=== PATIENT | female | born 1955 | race Caucasian/White ===

== ENCOUNTER 2024-10-02 09:14 | Outpatient (AMB) | payer MEDICARE, SELFPAY ==
--- NOTE | 2024-10-02 09:18 | A.OFFVIS_ITS ---
Vital Signs 10/02/24 09:20 Height 5 ft 1 in Weight 114 lb 6.719 oz BMI 21.6 BP 110/78 Blood Pressure Location Rt brachial Position Sitting Pulse 76 Pulse Source Pulse Oximeter Pulse Oximetry (%) 97 Oxygen Delivery Method Room Air Intake Visit Reasons: arthritis Accompanied by: Self / Same As Patient Allergies naproxen Adverse Reaction (Mild, Verified 10/02/24 09:22) Unknown HPI HPI arthritis: Details: She feels well. Cyst tests resolved on her right proximal 5th phalanx. She has been taking alendronate since 01/14/2024. She takes vitamin-D 125 mcg daily but has missed a couple of doses. Denies any plans for tooth extraction. 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 She has been experiencing neck discomfort, which she treats with a heating pad. She has been to physical therapy in the past without any benefit. [facility] Medical History Arthritis Surgical History History of 2 sections Review of Systems Const All systems reviewed & are unremarkable except as noted in HPI and below Physical Exam Vital Signs: Last Vital Signs Pulse 76 10/02/24 09:20 BP 110/78 10/02/24 09:20 Pulse Ox 97 10/02/24 09:20 Oxygen Delivery Method Room Air 10/02/24 09:20 BMI result Body Mass Index 21.6 Const Other: General: Comfortable CVS: RRR Respiratory: clear to auscultation bilaterally. Good respiratory effort Skin: No lesions seen MSK: Tender to palpate cervical spinous process and paraspinal muscles. She is able to rotate cervical spine 60 degrees bilateral but has limited neck flexion. She has good neck extension. Heberden's nodes present. Right 5th finger cyst present on PIP. No tenderness of any joint in extremities. Assessment & Plan Assessment & Plan (1) Osteoporosis: Comment: On Fosamax since 01/14/2024. She had bone density at PCPs office in [place] the year before. We discussed that it is best for her to be on treatment for at least 2 years before checking bone density to assess benefit Code(s): M81.0 - Age-related osteoporosis without current pathological fracture Category: Medical Qualifiers: Osteoporosis type: age-related Presence of current pathological fracture: unspecified Qualified Code(s): M81.0 - Age-related osteoporosis without current pathological fracture Plan: Bone density due after 01/13/2026 Continue Fosamax 70 mg once weekly Continue calcium carbonate 600 mg daily Continue vitamin-D 125 mcg daily Discussed importance of having a regular exercise regimen. Discussed importance of weight-bearing exercises Return to clinic in 6 months (2) Neck pain: Comment: Myofascial strain is contributing. She also has spinal tenderness that I am concerned for osteoarthritis contributing. 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 She is a a[employer] dental hygienist and after prison her pain did subside. She has had recurrence of pain currently treating with heating pad. We discussed conservative management. Patient declined physical therapy. Code(s): M54.2 - Cervicalgia Category: Medical Plan: I recommend that she resume exercises that she learned from PT in the past to maintain range of motion Try lidocaine topical/patch applied to affected area as needed Continue up to apply heat to the affected area as needed If pain does not improve next visit, we will obtain C-spine x-ray for further evaluation Return to clinic 6 months or sooner if needed (3) Osteoarthritis of hands, bilateral: Comment: Pain is controlled Code(s): M19.041 - Primary osteoarthritis, right hand; M19.042 - Primary osteoarthritis, left hand Category: Medical Plan: Monitor clinically Orders: Orders Calcium Today M81.0 - Age-related osteoporosis without current pathological fracture Alkaline Phosphatase Bone Today M81.0 - Age-related osteoporosis without current pathological fracture Creatinine Today M81.0 - Age-related osteoporosis without current pathological fracture Vitamin D 25-OH Total Today M81.0 - Age-related osteoporosis without current pathological fracture Albumin Level Today M81.0 - Age-related osteoporosis without current pathological fracture Collagen Type I C-Telopeptide Today M81.0 - Age-related osteoporosis without current pathological fracture Coding Level of Care Code Est Pt Level 4 (51742) Complex EM visit Add On G2211 Diagnoses Age related osteoporosis, unspecified pathological fracture presence M81.0 Osteoporosis type: age-related Presence of current pathological fracture: unspecified Neck pain M54.2 Osteoarthritis of hands, bilateral M19.041; M19.042
[2024-10-02 09:20] VITALS: BP 110/78; PULSE 76; O2SAT 97; BMI 21.6
--- OUTSIDE RECORDS SUMMARY | 2024-10-02 09:30 | XMS_ITS | Data Portability ---
Author Organization [facility] [facility], [facility] Address [address] [place] [address] Care Team Providers Care Electrician Aircraft Name Role Phone MARIA DE JESUS BARBA Referring Provider Assessment No assessment recorded. Plan of Treatment Reminders Order Date Submit Date Provider Last Modified By Organization Details Last Modified Time Details Appointments None recorded. Lab None recorded. Referral None recorded. Procedures None recorded. Surgeries None recorded. Imaging None recorded. Medication Orders erythromyci n 5 mg/gram (0.5 %) eye ointment 2022 023 [facility][id number], [address] [place], [place], [id number], 3 11:22:58 Patient TargetsNo targets recorded. Patient Instructions Encounter Date Encounter Id Patient Instructions Last Modified By Organization Details Last Modified Time 09/10/2023 [id number] Follow up with your eye DrFernie if needed. [email or web address] Not available 09/10/2023 11:23:13 Reason for Referral None Reported. Problems No Known Problems Procedures Surgical History Date Name Laterality Status Provider Name and Address Organization Details Recorded Time 3 Date of Last Mammogram completed Shannon Manning [facility] 09/10/2023 10:46:24 Imaging Results None recorded. Procedure Notes None recorded. Medical Equipment None Reported. Allergies No known drug allergies Medications Name Sig Start Date Stop Date Status Note LastModified by Organization Details LastModified Time erythromycin 5 mg/gram (0.5 %) eye ointment APPLY 1 CM RIBBON INTO THE LOWER CONJUNCTIVA L SAC(S) IN THE AFFECTED EYE(S) BY OPHTHALMIC ROUTE 3 TIMES PER DAY 2022 active Not Available Not Available Not Avai lable Vitals Date Recorded Body weight Body mass index (BMI) Body height Oxygen saturation Oxygen saturation in Arterial blood by Pulse oximetry Heart rate Body temperature Systolic blood pressure Diastolic blood pressure Provider Name and Address Organization Details Last Updated DateTime 3 56387.6 2 g 22.3 kg/m2 154.94 cm 98 % 98 % 60 /min 97.9 [degF] 135 mm[Hg] 80 mm[Hg] [facility] 10:52:16 Social History Question Answer Notes LastModified by Organizat ion Details LastModified Time Tobacco Smoking Status Never Smoker [facility] 09/10/2023 10:50:40 What Is Your Level Of Alcohol Consumption? Occasional [email or web address] Information not available 09/10/2023 What Is Your Level Of Caffeine Consumption? Occasional [email or web address] Information not available 09/10/2023 Have You Ever Been Counseled For Unhealthy Alcohol Use? No [email or web address] Information not available 09/10/2023 What Is Your Relationship Status? [email or web address] Information not available 09/10/2023 Do You Use Any Illicit Or Recreational Drugs? No [email or web address] Information not available 09/10/2023 Has Tobacco Cessation Counseling Been Provided? No [email or web address] Information not available 09/10/2023 Do You Or Have You Ever Used Any Other Forms Of Tobacco Or Nicotine? No [email or web address] Information not available 09/10/2023 Sex: Female Functional Status None recorded. Mental Status None recorded. Family History Nothing Reported. Medical History No medical history recorded. Gynecological History Statement/Question Response Date of Last Mammogram 06/26/2023 Obstetrics History GPAL:G 0 P 0 0 0 0 Immunizations Vaccine Type Date Status Note Provider Nam e and Address Organization Details Recorded Time Influenza, adjuvanted, quadrivalent, PF 07/09/2021 completed [facility] 09/10/2023 09:54:33 COVID-19, mRNA, LNP-S, PF, 100 mcg/0.5mL dose or 50 mcg/0.25mL dose 07/20/2021 [facility] 09/10/2023 09:54:33 Past Encounters Encounter ID Performer Location Encounter Start Date Encounter Closed Date Diagnosis/Indication Diagnosis SNOMED-CT Code Diagnosis ICD10 Code Diagnosis Note [id number] DO [facility] [address] [place] [id number] 09/10/2023 09:41:30 09/10/2023 11:20:41 Acute blepharitis 73971100 H01.009 Acute. Unstable. Needs treatment. See orders. Health Concerns Section Related Observation LastModified by Organization Detai ls LastModified Time None Recorded Concern Status LastModified by Organization Details LastModified Time None Recorded Advance Directives Directive None Recorded Payers Encounter Date Sequence Insurance Name Policy Number Policy Valdivia Covered Member ID Valdivia Member ID Guarantor Name 09/10/2023 1 [place] Santa Perez [id number] Santa Perez 09/10/2023 2 [facility] (MEDICARE SUPPLEMENT) [id number] Santa Perez [id number] Santa Perez Notes Date Note Type Note Provider Name and Address Organization Details Recorded Time 09/10/2023 text/html Eye ComplaintRep orted bypatient.Reason for visit:acute complaint Location:right eye Quality:puffy eyelids(upper) Severity:moderate Duration:constant Onset/Timin weeks ago;recurrent episode Context:no other sick contacts; no recent swimming; no recent injury; History of Blepharitis Alleviating factors:nothing Aggravating factors:palpation Associated Symptoms:no fever; no exudates; no head congestion Express Covid Questions ?Are you feeling sick today? Includes any NEW symptom(s) among those listed previously that are NOT due to another health problem ?No ?Have you tested positive for COVID-19 in the past 10 days?No ?In the last 10 days, have you been exposed to someone who has tested positive for COVID-19?No Imported from [facility] on 09/10/2023 Maria De Jesus Barba, DO [address], [place], [address], [facility], [facility] 09/10/2023 11:23:29 OBGyn Episode No OBEpisode recorded.
== END 2024-10-02 10:14 | disposition home or self-care (01) ==
PROVIDERS: Visit Provider Internal Medicine Rheumatology
DX: M81.0 Age-related osteoporosis without current pathological fracture (principal); M54.2 Cervicalgia; M19.041 Primary osteoarthritis, right hand; M19.042 Primary osteoarthritis, left hand
CPT/HCPCS: 99214; G2211

== ENCOUNTER 2024-10-02 09:14 | Outpatient (REF) | payer MEDICARE, SELFPAY ==
[2024-10-02 18:33] LABS: Albumin Level 4.2 g/dL (3.5-5.0); Calcium 9.7 mg/dL (8.4-10.2); Estimated Glomerular Filt Rate > 60
[2024-10-02 18:48] LABS: Vitamin D 25-OH Total 49.7 ng/mL (>30)
[2024-10-06 04:09] LABS: Alkaline Phosphatase Bone 7.5 mcg/L (5.6-29.0)
[2024-10-06 21:28] LABS: Collagen Type I C-Telopeptide 116 pg/mL (see note)
== END 2024-10-02 09:15 | disposition home or self-care (01) ==
LOC: HO.HKASLDS 09:14
PROVIDERS: Visit Provider Internal Medicine Rheumatology
DX: M81.0 Age-related osteoporosis without current pathological fracture (principal); M54.2 Cervicalgia; M19.041 Primary osteoarthritis, right hand; M19.042 Primary osteoarthritis, left hand
CPT/HCPCS: 36415; 82040; 82306; 82310; 82523; 82565; 84075; 99212

== ENCOUNTER 2025-04-03 09:16 | Outpatient (AMB) | payer MEDICARE, SELFPAY ==
--- NOTE | 2025-04-03 09:20 | A.OFFVIS_ITS ---
Vital Signs 04/03/25 09:21 Height 5 ft 1 in Weight 119 lb 0.794 oz BMI 22.5 BP 124/80 Blood Pressure Location Rt brachial Position Sitting Pulse 76 Pulse Source Pulse Oximeter Pulse Oximetry (%) 98 Oxygen Delivery Method Room Air Intake Visit Reasons: 6 mnts Intake Note: Patient presents today for an arthritis follow up. Allergies naproxen Adverse Reaction (Mild, Verified 04/03/25 09:24) Unknown HPI HPI 6 mnts: Details: She has MRI being scheduled of c-spine for workup for R foot/lower anterior ankle by Dr. [facility]. EMG of LE was unremarkable and L spine radiculopathy was not found. She has sporatic exercises learned from PT in the past when neck is sore. Neck pain may be positional due to the way she sleeps. Weight lifts twice a week 60lbs. Uses heat on neck PRN with benefit. [facility] Medical History Arthritis Surgical History History of 2 sections Physical Exam Vital Signs: Last Vital Signs Pulse 76 04/03/25 09:21 BP 124/80 04/03/25 09:21 Pulse Ox 98 04/03/25 09:21 Oxygen Delivery Method Room Air 04/03/25 09:21 BMI result Body Mass Index 22.5 Const Other: General: Comfortable CVS: RRR Respiratory: clear to auscultation bilaterally. Good respiratory effort Skin: No lesions seen MSK: She is able to rotate cervical spine 60 degrees right side and 45 degrees left side but has limited neck flexion and extend. Heberden's nodes present. No tenderness of any joint in extremities. Normal range of upper extremities. Assessment & Plan Assessment & Plan (1) Osteoporosis: Comment: On Fosamax since 01/14/2024. She had bone density at PCPs office in [place] the year before. We discussed that it is best for her to be on treatment for at least 2 years before checking bone density to assess benefit Code(s): M81.0 - Age-related osteoporosis without current pathological fracture Category: Medical Qualifiers: Osteoporosis type: age-related Presence of current pathological fracture: unspecified Qualified Code(s): M81.0 - Age-related osteoporosis without current pathological fracture Plan: Bone density due after 01/13/2026 Continue Fosamax 70 mg once weekly Continue calcium carbonate 600 mg PRN. She has dietary calcium intake daily Continue vitamin-D 125 mcg daily Discussed importance of having a regular exercise regimen Follow up with PCP Return to clinic PRN (2) Neck pain: Comment: With limited range of motion. 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 Neurologists is repeating MRI cervical spine for workup of right foot/ lower leg paraesthesia. She has completed PT in the past. Code(s): M54.2 - Cervicalgia Category: Medical Plan: I recommend that she resume exercises that she learned from PT in the past and do daily exercises to improve range of motion of cervical spine She will follow up with neurologists for MRI C-spine Return to clinic PRN (3) Osteoarthritis of hands, bilateral: Comment: Pain is controlled Code(s): M19.041 - Primary osteoarthritis, right hand; M19.042 - Primary osteoarthritis, left hand Category: Medical Plan: Monitor clinically Return to clinic PRN Coding Level of Care Code Est Pt Level 4 (02344) Complex EM visit Add On G2211 Diagnoses Age related osteoporosis, unspecified pathological fracture presence M81.0 Osteoporosis type: age-related Presence of current pathological fracture: unspecified Neck pain M54.2 Osteoarthritis of hands, bilateral M19.041; M19.042 Time Spent (min) 30
[2025-04-03 09:21] VITALS: BP 124/80; PULSE 76; O2SAT 98; BMI 22.5
--- OUTSIDE RECORDS SUMMARY | 2025-04-03 09:34 | XMS_ITS | Data Portability ---
Author Organization [facility] [employer], [facility] Address [address] [place] [address] Care Team Providers Care Lining Ironer Name Role Phone DERIKMARIA DE JESUS BAÑUELOS Referring Provider [phone] Assessment No assessment recorded. Plan of Treatment Reminders Order Date Submit Date Provider Last Modified By Organization Details Last Modified Time Details Appointments None recorded. Lab None recorded. Referral None recorded. Procedures None recorded. Surgeries None recorded. Imaging None recorded. Medication Orders erythromyci n 5 mg/gram (0.5 %) eye ointment 2022 023 [facility][id number], [address] [place], [place], [id number], 3 11:22:58 Patient TargetsNo targets recorded. Patient Instructions Encounter Date Encounter Id Patient Instructions Last Modified By Organization Details Last Modified Time 09/10/2023 [id number] Follow up with your eye DrFernie if needed. [email or web address] Not available 09/10/2023 11:23:13 Reason for Referral None Reported. Problems No Known Problems Procedures Surgical History Date Name Laterality Status Provider Name and Address Organization Details Recorded Time 3 Date of Last Mammogram completed Shannon Manning [facility] [facility] 09/10/2023 10:46:24 Imaging Results None recorded. Procedure [...] Pulse oximetry Heart rate Body temperature Systolic And Diastolic Provider Name and Address Organization Details Last Updated DateTime 3 41875.6 2 g 22.3 kg/m2 154.94 cm 98 % 98 % 60 /min 97.9 [degF] 135/80 mm[Hg] [facility] 3 10:52:16 Social History Question Answer Notes LastModified by Mobile Medical Testing Details LastModified Time Tobacco Smoking Status Never Smoker Shannon had[facility] 09/10/2023 10:50:40 What Is Your Level Of Caffeine Consumption? Occasional [email or web address] Information not available 09/10/2023 Have You Ever Been Counseled For Unhealthy Alcohol Use? No [email or web address] Information not available 09/10/2023 What Is Your Relationship Status? [email or web address] Information not available 09/10/2023 Has Tobacco Cessation Counseling Been Provided? No [email or web address] Information not available 09/10/2023 Sex: Female Functional Status Question Answer Note LastModified by Organizat [employer] Details LastModified Time Do you use any illicit or recreational drugs? No [email or web address] Information not available 09/10/2023 Do you or have you ever used any other forms of tobacco or nicotine? No [email or web address] Information not available 09/10/2023 What is your level of alcohol consumption? Occasional [email or web address] Information not available 09/10/2023 Mental Status None recorded. Family History Nothing Reported. Medical History No medical history recorded. Gynecological History Statement/Question Response Date of Last Mammogram 06/26/2023 Obstetrics History GPAL:G 0 P 0 0 0 0 Immunizations Vaccine Type Date Status Note Provider Nam e and Address Organization Details Recorded Time Influenza, adjuvanted, quadrivalent, PF 07/09/2021 completed Shannon [facility] 09/10/2023 09:54:33 COVID-19, mRNA, LNP-S, PF, 100 mcg/0.5mL dose or 50 mcg/0.25mL dose 07/20/2021 completed Shannon hadley [facility] [employer] [facility] [employer] 09/10/2023 09:54:33 Past Encounters Encounter ID Performer Location Encounter Start Date Encounter Closed Date Diagnosis/Indication Diagnosis SNOMED-CT Code Diagnosis ICD10 Code Diagnosis Note [id number] Maria De Jesus Taylor DO [facility] IN [address] [place] [id number] 09/10/2023 09:41:30 09/10/2023 11:20:41 Acute blepharitis 57297339 H01.009 Acute. Unstable. Needs treatment. See orders. Health Concerns Section Related Observation LastModified by Organization Detai ls LastModified Time None Recorded Concern Status LastModified by Organization Details LastModified Time None Recorded Advance Directives Directive None Recorded Payers Insurance Date Sequence Insurance Name Policy Number Policy Valdivia Covered Member ID Valdivia Member ID Guarantor Name 09/10/2023 2 [place]) [id number] Santa Perez [id number] Santa Perez 09/10/2023 1 [place] Santa Perez [id number] Santa Perez Notes Date Note Type Note Provider Name and Address Organization Details Recorded Time 09/10/2023 text/html Eye ComplaintRep orted bypatient.Reason for visit:acute complaint Location:right eye Quality:puffy eyelids(upper) Severity:moderate Duration:constant Onset/Timin weeks ago;recurrent episode Context:no other sick contacts; no recent swimming; no recent injury; History of Blepharitis Alleviating factors:nothing Aggravating factors:palpation Associated Symptoms:no fever; no exudates; no head congestion Express Covid Questions Are you feeling sick today? Includes any NEW symptom(s) among those listed previously that are NOT due to another health problem No Have you tested positive for COVID-19 in the past 10 days? No In the last 10 days, have you been exposed to someone who has tested positive for COVID-19? No Imported from [facility] on 09/10/2023 Maria De Jesus Taylor DO [address], [place], [address], [facility] [employer] [facility] 09/10/2023 11:23:29 OBGyn Episode No OBEpisode recorded.
== END 2025-04-03 09:52 | disposition home or self-care (01) ==
LOC: HO.RHES 09:17
PROVIDERS: Visit Provider Internal Medicine Rheumatology
DX: M81.0 Age-related osteoporosis without current pathological fracture (principal); M54.2 Cervicalgia; M19.041 Primary osteoarthritis, right hand; M19.042 Primary osteoarthritis, left hand
CPT/HCPCS: 99214; G2211

== ENCOUNTER → 2025-04-03 09:16 | Outpatient (BNVA) | payer MEDICARE, SELFPAY | PROVIDERS: Visit Provider Internal Medicine Rheumatology | DX: M81.0 Age-related osteoporosis without current pathological fracture (principal); M54.2 Cervicalgia; M19.041 Primary osteoarthritis, right hand; M19.042 Primary osteoarthritis, left hand | CPT/HCPCS: 99212 ==